=== PATIENT | female | born 1955 | race Caucasian/White ===

== ENCOUNTER 2021-03-21 12:03 | Outpatient (RCR) | payer OTHER | END 2021-03-22 | LOC: ST 12:03 | PROVIDERS: ATTEND Psychiatry & Neurology Neurology | DX: R47.1 Dysarthria and anarthria (principal); G20 Parkinson's disease ==

== ENCOUNTER 2021-04-16 13:00 | Outpatient (RCR) | payer OTHER | END 2021-04-22 | LOC: ST 13:00 | PROVIDERS: ATTEND Psychiatry & Neurology Neurology | DX: R47.1 Dysarthria and anarthria (principal); G20 Parkinson's disease ==